=== PATIENT | female | born 1985 | race African-American/Black ===

== ENCOUNTER 2019-02-14 05:29 | Emergency (ER) | payer OTHER ==
[2019-02-14] MEDS ORDERED: KETOROLAC TROMETHAMINE 30 MG/ML SOL IM ONE (05:46)
[2019-02-14 05:47] VITALS: TEMP 98.1
[2019-02-14] MEDS ORDERED: ACETAMI/HYDROCO 325/10 TAB PO ONE (05:47)
[2019-02-14] MEDS ORDERED: KETOROLAC TROMETHAMINE 30 MG/ML SOL ONE (05:53)
[2019-02-14] MEDS ORDERED: APAP/HYDROCODONE 1 EACH TABLET ONE (05:53)
[2019-02-14] MEDS ORDERED: APAP/HYDROCODONE 1 EACH TABLET PO ONE (05:55)
[2019-02-14] MEDS ORDERED: BACITRACIN 500 U/GM OIN TOP ONE ×2 (07:13→07:15)
[2019-02-14 07:28] VITALS: BP 126/69; PULSE 78; RESP 18; O2SAT 99
== END 2019-02-14 07:50 | disposition home or self-care (01) | DRG 605 ==
LOC: ED 05:29
DX: S80.10XA Contusion of unspecified lower leg, initial encounter (principal); M79.601 Pain in right arm; M25.562 Pain in left knee; M79.671 Pain in right foot; M79.661 Pain in right lower leg; S80.812A Abrasion, left lower leg, initial encounter; V03.90XA Pedestrian on foot injured in collision with car, pick-up truck or van, unspecified whether traffic or nontraffic accident, initial encounter
CPT/HCPCS: 73560; 73590; 73620; 84703; 96372; 99283; 99284; G0390; J1885; A6402; A9270-GY